=== PATIENT | male | born 1935 | race Caucasian/White ===

== ENCOUNTER 2016-10-04 11:36 | Inpatient (IN) | payer BC ==
--- NOTE | ~2016-10-04 | EKG ---
PATIENT: YULI SUBRAMANIAN UNIT #: [id number] Ventricular Rate: 108 BPM Atrial Rate: 108 BPM P-R Interval: 122 ms QRS Duration: 140 ms Q-T Interval: 372 ms QTC Calculation(Bezet): 498 ms P Keenes: 46 degrees Calculated R Keenes: -65 degrees Calculated T Keenes: 56 degrees Diagnosis Line: Sinus tachycardia Diagnosis Line: Left axis deviation Diagnosis Line: Right bundle branch block Diagnosis Line: Minimal voltage criteria for LVH, may be normal Diagnosis Line: variant Diagnosis Line: Abnormal ECG Diagnosis Line: When compared with ECG of 22-JAN-2013 15:46, Diagnosis Line: No significant change was found Diagnosis Line: Confirmed by GONZALEZ VERAS MD ([id number]) on Diagnosis Line: 10/04/2016 2:04:57 PM INTERPRETING MD: EDA LEIVA
--- NOTE | ~2016-10-04 | CT4 ---
[facility] A Service of [facility] & [facility] RADIOLOGY TEXT RESULTS PATIENT: YULI SUBRAMANIAN LOCATION: [facility] 322-01 : 34 UNIT #: [id number] AGE: [address]: ALESSANDRA STEINER MD SEX: M ORDER DR: [id number] [facility] [address] [facility]. [place], [place] [address] [id number] I MR#: [id number] Acc #: [id number] NAME: YULI SUBRAMANIAN. : 1935 SEX: M STUDY DATE/TIME: 10/04/2016 12:58 UNIT: CEDOF ROOM: 36718 STUDY DESCRIPTION: CT Abd and Pelv Wo Cont Attending Physician: Alessandra Steiner M.D. Ordering Physician: Oleksandr Farmer M.D. Primary Care Physician: Min Deleon D.O. MEDICAL IMAGING REPORT This report is preliminary unless electronic signature is present EXAM CT abdomen and pelvis, 10/04. INDICATION Weakness since last Sunday. Diarrhea for 2 days. Patient is a poor historian. TECHNIQUE Axial noncontrast images were obtained through the abdomen and pelvis. Multiplanar reformats were obtained. COMPARISON No comparison abdomen and pelvis CT. This CT exam was performed with one or more of the following radiation dose reduction techniques: automatic exposure control, adjustment of mA and/or kV according to patient size, and iterative reconstruction. FINDINGS ABDOMEN: Lung bases are clear. Gallbladder is surgically absent. No renal or ureteral stones are seen. No hydronephrosis. The unenhanced solid organs are within normal limits. There is mild generalized colonic wall thickening with subtle adjacent fat stranding. Findings are compatible with colitis. Small bowel is normal. PELVIS: Urinary bladder is normal. No lower ureteral stones. There is colonic wall thickening compatible with colitis. There is subtle adjacent fat stranding as well. The appendix is dilated proximally and fluid-filled. The distal appendix is normal in caliber. This may be reactive. Acute appendicitis is not completely excluded on the basis of this exam. Continued follow up is recommended. No free fluid is seen. There is an inguinal hernia on the right that contains a knuckle of non-incarcerated small bowel. [facility]. [facility] A Service of [facility] & [facility] RADIOLOGY TEXT RESULTS PATIENT: YULI SUBRAMANIAN LOCATION: [facility] 322-01 : 34 UNIT #: [id number] AGE: [address]: ALESSANDRA STEINER MD SEX: M ORDER DR: IMPRESSION 1. Mild generalized colitis. No bowel obstruction. 2. Proximal half of the appendix is dilated and fluid-filled and the distal half is normal. This is of questionable significance. It may be reactive. Early acute appendicitis could have this appearance but this is felt to be less likely. Attention on follow up is recommended. 3. No renal or ureteral stones. No hydronephrosis. 4. Not mentioned above is mild prostate enlargement. 5. Cholecystectomy. Dictated by... Min Davenport Jr., M.D. THIS IS AN ELECTRONICALLY VERIFIED REPORT Min Davenport Jr., M.D. at 10/05/2016 5:52 AM MEEK/jonnathan TD: 10/04/2016 17:24 JOB #: [id number] MEDICAL IMAGING REPORT Page 1 of 1 COPY
--- NOTE | ~2016-10-04 | HP ---
Unit #: [id number] #: [id number] Patient: YULI SUBRAMANIAN [id number] [address] [address] [id number] I MR#: [id number] NAME: YULI SUBRAMANIAN. ROOM: 40517 Age: 81 Sex: M Admission Date: 10/04/2016 : 1935 Attending Physician: Alessandra Steiner M.D. Primary Care Physician: Min Deleon D.O. HISTORY AND PHYSICAL CHIEF COMPLAINT Weakness since Sunday. HISTORY OF PRESENT ILLNESS The patient is an 81-year-old male with a history of diabetes, hypertension, and coronary artery disease, who presented to the emergency room with weakness. The patient also complains of diarrhea for the last three days. The patient denies any recent antibiotics and denies any nausea or vomiting. The patient also complains of generalized abdominal pain associated with the diarrhea. The patient had a CT of the abdomen and pelvis that showed mild generalized colitis and no bowel obstruction. He is being admitted for the above reasons. The patient was also found to be septic with a lactic acid of 3.1, and the sepsis protocol has been initiated. PAST MEDICAL HISTORY 1. Diabetes. 2. Hypertension. 3. Coronary artery disease. 4. Neuropathy. 5. Obstructive sleep apnea. PAST SURGICAL HISTORY 1. Coronary artery bypass graft. 2. Cholecystectomy. 3. Right carotid endarterectomy. SOCIAL HISTORY The patient lives with his . He denies alcohol or any illicit drug abuse. No smoking. FAMILY HISTORY Reviewed and none. ALLERGIES Penicillin. HOME MEDICATIONS 1. Gabapentin. 2. Glucophage. 3. Imdur. 4. Toprol. 5. Hydrochlorothiazide. 6. Moexipril. Unit #: [id number] #: [id number] Patient: YULI SUBRAMANIAN REVIEW OF SYSTEMS A 14-point review of systems was performed and only pertinent positive findings are as described above. The remaining are negative. PHYSICAL EXAMINATION GENERAL: Patient is lying in bed not in acute distress. VITAL SIGNS: Temperature 97.8, pulse 122, respiratory rate 20, blood pressure 89/47, and saturating 99% on room air. HEENT: Head atraumatic, normocephalic. Pupils equal, round, and reactive to light and accommodation. Extraocular movements are intact. NECK: Supple. LUNGS: Decreased air entry at the bases. HEART: Regular rate and rhythm. ABDOMEN: Generalized abdominal tenderness mainly in the right quadrants. No rebound, no rigidity. NEUROLOGIC: Alert, awake, and oriented. No gross focal motor deficit. DIAGNOSTIC STUDIES LABORATORY: Glucose 108, BUN 34, creatinine 2.8, sodium 133, potassium 4.2, chloride 100, bicarb 19, calcium 9.6, total protein 6.9 AST 27, ALT 15, and alkaline phosphatase 65. Amylase 33. Lactic acid was 3.1 and down to 1.4. INR is 1.1. WBC 12.3, hemoglobin 14.8, hematocrit 43.7, platelets 171,000, and neutrophils 82.3. IMAGING: CT of the abdomen and pelvis shows mild generalized colitis. No bowel obstruction. The proximal half of the appendix is dilated and fluid-filled and the distal half is normal. This is of questionable significance. It may be reactive. Early acute appendicitis could have this appearance, but this is felt to be less likely. No renal or ureteral stones. No hydronephrosis. Not mentioned above is mild prostate enlargement. Cholecystectomy. CARDIOLOGY: EKG shows sinus tachycardia at a rate of 108 beats per minute, left axis deviation, right bundle branch block, and no acute ST-T changes. ASSESSMENT 1. Sepsis. 2. Colitis. 3. Acute kidney injury. PLAN Admit the patient to inpatient. Patient will have sepsis protocol. Continue with IV antibiotics with Levaquin and Flagyl. We will have [facility] consult for the early acute appendicitis. Replace the fluid per sepsis protocol. Further recommendations will follow as more lab results are available. Patient will be on low-dose sliding scale. Dictated by Ally Madrigal TD: 10/04/2016 18:46 JOB #: [id number] Unit #: [id number] #: [id number] Patient: YULI SUBRAMANIAN HISTORY AND PHYSICAL Page 1 of 1 X ALESSANDRA STEINER MD HISTORY AND PHYSICAL
--- NOTE | ~2016-10-04 | CT71 ---
[facility] A Service [facility] RADIOLOGY TEXT RESULTS PATIENT: YULI SUBRAMANIAN LOCATION: [facility] 322-01 : 34 UNIT #: [id number] AGE: [address]: Frida Palacios MD SEX: M ORDER DR: [id number] [facility] [address] [facility]. [place], [place] [address] [id number] I MR#: [id number] #: [id number] NAME: YULI SUBRAMANIAN. : 1935 SEX: M STUDY DATE/TIME: 10/04/2016 12:55 UNIT: CEDOF ROOM: 56770 STUDY DESCRIPTION: CT Head Wo Contrast Attending Physician: Eusebia Steiner M.D. Ordering Physician: Oleksandr Farmer M.D. Primary Care Physician: Min Deleon D.O. MEDICAL IMAGING REPORT This report is preliminary unless electronic signature is present EXAM Noncontrast head CT. HISTORY Weakness for 3 days. Also complains of diarrhea. History provided through the emergency room personnel, patient unable to provide history. COMPARISON Head CT, 01/22/[address] exam was performed with one or more of the following radiation dose reduction techniques: automatic exposure control, adjustment of mA and/or kV according to patient size, and iterative reconstruction. FINDINGS Axial noncontrast imaging of the brain demonstrates foci of decreased attenuation within the left external capsule and right caudate compatible with old lacunar infarcts. Probable old lacunar infarct right basal ganglia. No large vessel infarct. No mass, mass effect or midline shift. No hemorrhage or abnormal extraaxial fluid collections. Bony calvarium skull base and mastoids and sinuses unremarkable. Also demonstrated is a subtle area of decreased attenuation within the right centrum semiovale which may represent an old infarct and this also appears unchanged from the 2013 CT. 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 No acute intracranial abnormality identified. Please note study is essentially unchanged from head CT 01/22/2013. [facility] A Service [facility] RADIOLOGY TEXT RESULTS PATIENT: YULI SUBRAMANIAN LOCATION: [facility] 322-01 : 34 UNIT #: [id number] AGE: [address]: Frida Palacios MD SEX: M ORDER DR: Dictated by... Josi Gutierres M.D. THIS IS AN ELECTRONICALLY VERIFIED REPORT Josi Gutierres M.D. at 10/06/2016 5:11 PM HIRAL/juanpablo TD: 10/04/2016 17:10 JOB #: [id number] MEDICAL IMAGING REPORT Page 1 of 1 COPY
--- NOTE | ~2016-10-04 | CO ---
Unit #: [id number] #: [id number] Patient: YULI SUBRAMANIAN [id number] [address] [place], [place] [address] [id number] I MR#: [id number] NAME: YULI SUBRAMANIAN ROOM: [facility] Age: 81 Sex: M Admission Date: 10/04/2016 : 1935 Attending Physician: Frida Palacios M.D. Primary Care Physician: Min Deleon D.O. Requesting Physician: Eusebia Steiner M.D. Consultation Date: 10/05/2016 CONSULTATION REPORT REASON FOR CONSULTATION 1. Diarrhea. 2. Colitis. HISTORY OF PRESENT ILLNESS Thank you very much for asking us to see Mr. Subramanian. He is an 81-year-old white male who was doing well until three days ago when he developed chills and then developed significant watery diarrhea. He has had 5 to 10 episodes per day over the last two to three days. He came to the emergency room for further evaluation and treatment. At that time, he had a CT scan of the abdomen and pelvis performed. This CT scan revealed absence of the gallbladder. He was also found to have colonic wall thickening compatible with colitis. The appendix was dilated proximally and fluid filled, the distal appendix was normal in caliber. It was felt to either be reactive, however, acute appendicitis could not be completely excluded. The patient has no complaints of right lower quadrant pain. He has mild diffuse abdominal pain. He denies any blood in his stool. He has had no recent travel in the last several months outside the [place]. No one else is sick at home. He has been on no antibiotics in the last several months. He was found, on admission, to have a lactic acid level of 3.1 and sepsis protocol was initiated by Dr. Steiner. PAST MEDICAL HISTORY 1. Diabetes. 2. Hypertension. 3. Heart disease. 4. Neuropathy. 5. Sleep apnea. PAST SURGICAL HISTORY 1. Coronary artery bypass. 2. Cholecystectomy. 3. Right carotid endarterectomy. HOME MEDICATIONS 1. Gabapentin. 2. Glucophage. 3. Imdur. 4. Toprol. 5. Hydrochlorothiazide. 6. Moexipril. ALLERGIES Penicillin. Unit #: [id number] #: [id number] Patient: YULI SUBRAMANIAN SOCIAL HISTORY No alcohol or tobacco use. FAMILY HISTORY Noncontributory. REVIEW OF SYSTEMS Negative except for above. IMMUNIZATIONS Status unknown. PHYSICAL EXAMINATION VITAL SIGNS: Temperature is currently 99.5 with a pulse of 102, respirations 18, blood pressure of 116/68. GENERAL: Well-developed, well-nourished white male in no apparent distress. HEENT: Sclerae nonicteric. Extraocular movements are intact. NECK: Supple, no thyromegaly, no adenopathy. BACK: No CVA or spinous tenderness. ABDOMEN: Flat, soft. No rebound, peritoneal signs, or masses. No rigidity. Mild diffuse tenderness but no guarding. EXTREMITIES: No calf tenderness. DIAGNOSTIC STUDIES LABORATORY: Revealed the patient to have a glucose of 92. Today his BUN is 28 and creatinine is 1.8 which is improved from admission. Sodium 134, CO2 is 19 and that is the same as on admission. Liver function studies are all within normal limits. Lactic acid level on admission was 3.1, it is now 1.4 today. White blood cell count on admission was 12.3, it is now 5.9 with a hemoglobin of 13.3. His MCV is normal. Platelet count is 129,000. Stool studies have been initiated, however, results are not available yet. IMPRESSION This is an 81-year-old white male with watery diarrhea and changes on CT scan with evidence of colitis. He has no right lower quadrant pain or tenderness and no evidence of appendicitis on clinical examination. His laboratory values are improved. PLAN 1. We have explained all to the patient in detail. 2. We agree with his current antibiotics and are awaiting results of his stool cultures. 3. Will continue IV fluids. 4. We feel he can have clear liquids in small amounts today. 5. We will place him on protonic as well. 6. We have explained to the patient that since he has not had a colonoscopy in many years, that he should have a colonoscopy at some point. 7. He understands all and requests we proceed with the current treatment plan. Unit #: [id number] #: [id number] Patient: YULI SUBRAMANIAN Dictated by... Alfonso Mccormick M.D. Bipin TD: 10/05/2016 15:26 JOB #: [id number] CONSULTATION REPORT Page 1 of 1 X Alfonso Mccormick MD CONSULTATION REPORT
--- NOTE | ~2016-10-04 | CR72 ---
[facility] A Service of [facility] RADIOLOGY TEXT RESULTS PATIENT: YULI SUBRAMANIAN LOCATION: [facility] 322-01 : 34 UNIT #: [id number] AGE: [address]: Frida Palacios MD SEX: M ORDER DR: [id number] [facility] [address]. [place], [place] [address] [id number] E MR#: [id number] Acc #: [id number] NAME: YULI SUBRAMANIAN : 1935 SEX: M STUDY DATE/TIME: 10/04/2016 12:05 UNIT: [place] ROOM: STUDY DESCRIPTION: CR Chest Single View Portable Attending Physician: Oleksandr Farmer M.D. Ordering Physician: Oleksandr Farmer M.D. Primary Care Physician: Min Deleon D.O. MEDICAL IMAGING REPORT This report is preliminary unless electronic signature is present EXAM Chest portable, 10/04/2016 12:05 hours HISTORY 81-year-old man with dehydration today. Weakness since 10/01/2016. History of hypertension. COMPARISON 10/25/2006 FINDINGS Portable upright chest demonstrates prior median sternotomy and CABG change. The cardiac, mediastinal and hilar contours are normal. Lungs are moderately well expanded and clear. There is no effusion or pneumothorax. IMPRESSION Prior CABG change. No acute cardiopulmonary findings. Dictated by... Kacey Holbrook M.D. THIS IS AN ELECTRONICALLY VERIFIED REPORT Kacey Holbrook M.D. at 10/05/2016 9:25 AM Bishnu TD: 10/04/2016 15:42 JOB #: [id number] MEDICAL IMAGING REPORT Page 1 of 1 COPY
--- NOTE | ~2016-10-04 | DS ---
Unit #: [id number] #: [id number] Patient: YULI SUBRAMANIAN [id number] [address] [address] [id number] I MR#: [id number] NAME: YULI SUBRAMANIAN. ROOM: 322 Age: 81 Sex: M Admission Date: 10/04/2016 : 1935 Discharge Date: 10/07/2016 Attending Physician: Frida Palacios M.D. Primary Care Physician: Min Deleon D.O. DISCHARGE SUMMARY ADMISSION DIAGNOSES 1. Sepsis. 2. Acute colitis. 3. Acute kidney injury. DISCHARGE DIAGNOSES 1. Sepsis, resolved. 2. Acute colitis, improved. 3. Acute kidney injury, resolved. 4. Chronic kidney disease, stage 2. 5. Type 2 diabetes mellitus. 6. Hypertension. 7. Coronary artery disease. 8. Obstructive sleep apnea syndrome. DIAGNOSTIC DATA LABORATORY: White blood cell count 5.9, hemoglobin 13.1, platelet count 161. BMP from today is pending. Stool for c-diff was negative. Blood cultures did not reveal any growth so far. IMAGING: CT of the head did not reveal any acute findings. There were old infarcts present bilaterally. HOSPITAL COURSE The patient is an 81-year-old male who presented to the hospital with acute colitis. Details are as per admission history and physical. The patient was seen by Dr. Mccormick in consultation. The patient is doing much better. The patient is tolerating a diet. The patient wants to go home today. Acute kidney injury: Responded to IV fluids. The patient's creatinine yesterday was 1.2. PLAN Will discharge the patient home today. DISCHARGE CONDITION Stable. ACTIVITY As tolerated. DISCHARGE MEDICATION Unit #: [id number] #: [id number] Patient: YULI SUBRAMANIAN 1. Toprol XL 50 mg p.o. b.i.d. 2. Metformin 500 mg p.o. b.i.d., restart in 3 days. 3. Neurontin 300 mg p.o. t.i.d. 4. Moexipril and hydrochlorothiazide were discontinued because of low blood pressure. 5. Imdur ER 30 mg p.o. daily. 6. Flagyl 500 mg p.o. t.i.d. for 1 week. 7. Levaquin 500 mg p.o. daily for 1 week. FOLLOWUP 1. The patient is advised to follow up with primary care physician in one week and have a CBC and BMP done. 2. The patient is advised to follow up with Dr. Mccormick and group as needed. 3. We will arrange home health regarding home safety assessment, physical therapy and occupational therapy. 4. Have advised staff to call with BMP results prior to discharge if abnormal. The plan was discussed with the patient, who showed complete understanding. Please make note, the patient was given the option to stay another day in the hospital as he is not feeling well, but he opted to go home. Dictated by... Ally Reeves/kimberly TD: 10/07/2016 07:41 JOB #: [id number] CC: Prieto Archibald M.D. DISCHARGE SUMMARY Page 1 of 1 X Paul Ruiz MD X DISCHARGE SUMMARY
[~2016-10-04 11:36] MED LIST: AGGRENOX PO; ASPIRIN PO; ATORVASTATIN CA80 MG PO; AZITHROMYCIN250 MG PO; DIABETA2.5 MG PO; GLUCOPHAGE500 M1 PO; GLUCOVANCE 5/501 TA1 PO; ISOSORBIDE DINI30 MG PO; LIPITOR40 MG PO; METFORMIN PO; NEURONTIN PO; NEURONTIN100 MG PO; TOPROL XL PO; TOPROL XL50 MG PO; UNIRETIC PO; UNIVASC7.5 MG PO
[2016-10-04 12:27] LABS: BASOPHIL% 0.4 % (0-2.5); EOSINOPHIL% 0.1 % (0.0-7.0); HEMATOCRIT 43.7 % (38.0-50.0); HEMOGLOBIN 14.8 gm/dL (13.0-16.0); LYMPHOCYTE# 1.1 X10e3 (1.0-3.5); LYMPHOCYTE% 8.7 % (17.0-45.0); MEAN CELL VOLUME 92.6 FL (83-96); MEAN CORPUSCULAR HEMOGLOBIN 31.3 PG (28-34); MEAN CORPUSCULAR HGB CONC 33.8 g/dL (30-36); MEAN PLATELET VOLUME 7.3 FL (6.5-11.5); MONOCYTE% 8.5 % (3.0-12.0); NEUTROPHIL# 10.1 X10e3 (1.5-7.1); NEUTROPHIL% 82.3 % (40-75); PLATELET COUNT 171 X10e3 (140-420); RED BLOOD COUNT 4.72 X10e (3.90-5.60); RED CELL DISTRIBUTION WIDTH 13.5 % (11.0-15.5); WHITE BLOOD COUNT 12.3 X10e3 (4.0-10.5)
[2016-10-04 12:29] LABS: POC - CKMB 2.3 ng/mL (0.0-7.9); POC - TROPONIN 0.11 ng/mL (<=0.05)
[2016-10-04 12:29] LABS: DIFF IND NO
[2016-10-04] MEDS ORDERED: GABAPENTIN300 M2 PO (12:37)
[2016-10-04] MEDS ORDERED: METFORMIN PO (12:38)
[2016-10-04] MEDS ORDERED: IMDUR PO (12:38)
[2016-10-04] MEDS ORDERED: TOPROL XL50 MG PO (12:38)
[2016-10-04] MEDS ORDERED: MOEXIPRIL-HCTZ1 EACH PO (12:42)
[2016-10-04 12:43] LABS: INR 1.1; PARTIAL THROMBOPLASTIN TIME 28.2 SECONDS (23.5-31.3); PROTHROMBIN TIME (PATIENT) 11.2 SECONDS (9.6-11.5)
[2016-10-04] MEDS ORDERED: PATIENT'S PHARMACY (12:44)
[2016-10-04 13:03] LABS: ALBUMIN SERUM 3.7 g/dL (3.5-5.0); BILIRUBIN, DIRECT 0.4 mg/dL (0.0-0.2); BILIRUBIN,INDIRECT 0.8 mg/dL (0.0-0.9); BILIRUBIN,TOTAL 1.2 mg/dL (0.2-2.0); BUN/CREATININE RATIO 12.14; CALCIUM SERUM 9.6 mg/dL (8.4-10.2); CREATININE SERUM 2.8 mg/dL (0.6-1.4); GLOM FILT RATE Estimated 20.1 mL/min (>60); POTASSIUM 4.2 mmol/L (3.5-5.1); PROTEIN TOTAL SERUM 6.9 g/dL (6.0-8.3)
[2016-10-04 14:41] LABS: POC - CKMB 1.8 ng/mL (0.0-7.9); POC - TROPONIN 0.07 ng/mL (<=0.05)
[2016-10-05 05:18] LABS: HEMATOCRIT 39.4 % (38.0-50.0); HEMOGLOBIN 13.3 gm/dL (13.0-16.0); MEAN CELL VOLUME 92.7 FL (83-96); MEAN CORPUSCULAR HEMOGLOBIN 31.2 PG (28-34); MEAN CORPUSCULAR HGB CONC 33.7 g/dL (30-36); MEAN PLATELET VOLUME 7.5 FL (6.5-11.5); RED BLOOD COUNT 4.26 X10e (3.90-5.60); RED CELL DISTRIBUTION WIDTH 13.2 % (11.0-15.5)
[2016-10-05 05:29] LABS: WHITE BLOOD COUNT 5.9 X10e3 (4.0-10.5)
[2016-10-05 06:07] LABS: BUN/CREATININE RATIO 15.55; CREATININE SERUM 1.8 mg/dL (0.6-1.4); GLOM FILT RATE Estimated 34.3 mL/min (>60); POTASSIUM 3.5 mmol/L (3.5-5.1)
[2016-10-06 03:30] LABS: URINE SOURCE CLEAN CATCH
[2016-10-06 03:36] LABS: URINE APPEARANCE CLEAR; URINE BILIRUBIN NEG (NEG); URINE BLOOD NEG (NEG); URINE COLOR YELLOW; URINE GLUCOSE NEG (NEG); URINE KETONE TRACE (NEG); URINE LEUKOCYTE ESTERASE TRACE (NEG); URINE NITRATE NEG (NEG); URINE PROTEIN 1+ (NEG); URINE SPECIFIC GRAVITY 1.014 (1.003-1.035); URINE UROBILINOGEN 0.2 MG/DL (NEG)
[2016-10-06 03:38] LABS: URINE BACTERIA AUWI NEG (NEGATIVE); URINE SQUAMOUS EPITHELIAL CELL NONE SEEN /[HPF]
[2016-10-06 03:40] LABS: CULTURE INDICATED? NO
[2016-10-06 07:33] LABS: HEMATOCRIT 40.3 % (38.0-50.0); HEMOGLOBIN 13.6 gm/dL (13.0-16.0); MEAN CORPUSCULAR HEMOGLOBIN 31.1 PG (28-34); MEAN CORPUSCULAR HGB CONC 33.8 g/dL (30-36); MEAN PLATELET VOLUME 7.6 FL (6.5-11.5); RED BLOOD COUNT 4.38 X10e (3.90-5.60); RED CELL DISTRIBUTION WIDTH 13.1 % (11.0-15.5); WHITE BLOOD COUNT 5.1 X10e3 (4.0-10.5)
[2016-10-06 08:06] LABS: CALCIUM SERUM 9.1 mg/dL (8.4-10.2); CREATININE SERUM 1.2 mg/dL (0.6-1.4); POTASSIUM 3.3 mmol/L (3.5-5.1)
[2016-10-07 06:30] LABS: HEMATOCRIT 39.3 % (38.0-50.0); HEMOGLOBIN 13.1 gm/dL (13.0-16.0); MEAN CELL VOLUME 92.7 FL (83-96); MEAN CORPUSCULAR HGB CONC 33.5 g/dL (30-36); MEAN PLATELET VOLUME 7.2 FL (6.5-11.5); RED BLOOD COUNT 4.24 X10e (3.90-5.60); WHITE BLOOD COUNT 5.9 X10e3 (4.0-10.5)
[2016-10-07 07:17] LABS: BUN/CREATININE RATIO 12.85; CALCIUM SERUM 9.1 mg/dL (8.4-10.2); CREATININE SERUM 1.4 mg/dL (0.6-1.4); GLOM FILT RATE Estimated 46.5 mL/min (>60); POTASSIUM 3.7 mmol/L (3.5-5.1)
[2016-10-07] MEDS ORDERED: FLAGYL PO (08:32)
[2016-10-07] MEDS ORDERED: LEVAQUIN PO (08:33)
== END 2016-10-07 10:16 | disposition home health service (06) | DRG 872 ==
LOC: CED 11:36 → CEDOF 15:15 → CED 15:55 → C3A PCU 19:31 → CEDOF 19:31 → C3A PCU 10-05 07:48
PROVIDERS: Emergency Medicine; Internal Medicine; Surgery
DX: A41.9 Sepsis, unspecified organism (principal); N17.9 Acute kidney failure, unspecified; E11.22 Type 2 diabetes mellitus with diabetic chronic kidney disease; E11.40 Type 2 diabetes mellitus with diabetic neuropathy, unspecified; E87.1 Hypo-osmolality and hyponatremia; K52.9 Noninfective gastroenteritis and colitis, unspecified; I12.9 Hypertensive chronic kidney disease with stage 1 through stage 4 chronic kidney disease, or unspecified chronic kidney disease; N18.2 Chronic kidney disease, stage 2 (mild); Z79.84 Long term (current) use of oral hypoglycemic drugs; I25.10 Atherosclerotic heart disease of native coronary artery without angina pectoris; G47.33 Obstructive sleep apnea (adult) (pediatric); Z90.49 Acquired absence of other specified parts of digestive tract; Z88.0 Allergy status to penicillin
CPT/HCPCS: 70450; 71010; 74176; 80048; 80076; 81003; 82553; 82947; 83605; 84484; 85025; 85027; 85610; 85730; 87040; 87045; 87177; 87209; 87427; 87493; 87899; 93005; 96361; 96365; 96368; 99291; C9113; J1815; J1956